=== PATIENT | male | born 1965 | race Caucasian/White ===

== ENCOUNTER 2016-06-07 11:02 | Emergency (ER) | payer BC ==
[~2016-06-07] VITALS: Ht 190.5 cm; Wt 126.0 kg
[~2016-06-07 11:02] MED LIST: DIPH25CA37 PO; FLUO0.0543 TOP; PRD10 PO
[2016-06-07 11:05] VITALS: BP 163/96; PULSE 73; TEMP 36.4; O2SAT 97; Ht 190.5 cm; Wt 126.0 kg
[2016-06-07 11:57] LABS: BASO % 0.7 %; BASO ABS # 0.05 K/uL (0-0.2); COMPLETE YES; EOS % 4.3 %; HEMATOCRIT 45.7 % (42-52); IG% 0.1 %; LYMPH % 22.9 %; LYMPH ABS # 1.53 K/uL (1.2-3.4); MEAN CELL VOLUME 89.3 fL (80-100); MEAN CORPUSCULAR HEMOGLOBIN 30.5 pg (25-34); MEAN CORPUSCULAR HGB CONC 34.1 g/dl (32-36); MEAN PLATELET VOLUME 10.7 fL (7.4-10.4); MONO % 9.7 %; NEUT % 62.3 %; PLATELET COUNT 198 K/uL (130-400); RED BLOOD COUNT 5.12 M/uL (4.7-6.1); WHITE BLOOD COUNT 6.67 K/uL (4.8-10.8)
[2016-06-07 12:16] LABS: CALCIUM 8.6 mg/dl (8.5-10.1); CREATININE 1.1 mg/dl (0.60-1.40); POTASSIUM 4.3 mmol/L (3.5-5.1)
[2016-06-07 12:19] LABS: C-REACTIVE PROTEIN 0.32 mg/dl (0-0.29)
[2016-06-07 12:23] LABS: INR 0.9 (0.9-1.1); PROTHROMBIN TIME (PATIENT) 10.1 SECONDS (9.0-12.0)
--- NOTE | 2016-06-07 12:53 | EMERGENCY ROOM VISIT NOTE ---
ED Visit Note First contact with patient: 11:10 This Patient was discussed with the physician Research Greenhouse Supervisor, Estrella Raya PA-C. The pertinent historical and physical exam findings were confirmed. I agree with the studies ordered and with the interpretations of these studies. I agree with the disposition and care plan.
[2016-06-07] MEDS ORDERED: DOXY100C PO (13:10)
[2016-06-07] MEDS ORDERED: PRED20TA PO (13:11)
--- NOTE | 2016-06-07 13:13 | EMERGENCY ROOM VISIT NOTE ---
History First contact with patient: 11:10 Chief Complaint: RASH Stated Complaint: RASH, BLISTERS, HIVES History of Present Illness The patient is a 51 year old male who presents to the Emergency Room for evaluation of a rash to his left lower leg and both hands. The patient states that he has had issues with rashes for the past 2 years. The patient was initially seen here in September 2014 and admitted for possible cellulitis. He has since been evaluated by a fire information officer and they determined that the rash was likely a hypersensitivity reaction. 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 He has been using a prescription steroid cream and Eucerin ointment without relief. The patient states that there is redness and mild pain in the left lower leg. He states this was the site of infection previously. He also reports a history of venous stasis in that leg. He reports that recently, he has been having redness , itchiness and swelling of both of his hands. He states that today, a few blisters appeared on the hands. He has not seen his primary care provider for any symptoms. The patient denies any fevers/chills, decreased range of motion, new foods, new medications or new environmental exposures. He reports he occasionally takes Benadryl for itching. Review of Systems A complete 10-point Review of Systems was discussed with the patient, with pertinent positives and negatives listed in the History of Present Illness. All remaining Review of Systems questions can be considered negative unless otherwise specified. Past Medical/Surgical History Medical Problems: (1) Cellulitis (2) No Known Active Medical Problems Family History Cancer Diabetes mellitus Heart disease Social History Smoking Status: Never Smoker Alcohol Use: occasionally Marital Status: Housing Status: lives with family Occupation Status: employed Current/Historical Medications Scheduled Doxycycline Hyclate (Vibramycin), 100 MG PO BID Prednisone (Prednisone), 0 PO DAILY Allergies Coded Allergies: No Known Allergies (Unverified , 06/07/16) Physical Exam Vital Signs Date Time Temp Pulse Resp B/P Pulse Ox O2 Delivery O2 Flow Rate FiO2 06/07/16 11:05 36.4 73 18 163/96 97 Room Air Physical Exam VITALS: Vitals are noted on the nurse's note and reviewed by myself. Vital signs stable. GENERAL: This is a 51-year-old male, in no acute distress, nondiaphoretic, well- developed well-nourished. SKIN: There are erythematous, scaly patches to the dorsal aspects of bilateral hands, fingers and the forearms. There is evidence of excoriation. There are no lacerations or areas of induration. HEART: Regular rate and rhythm without murmurs gallops or rubs. LUNGS: Clear to auscultation bilaterally without wheezes, rales or rhonchi. EXTREMITIES:There are chronic-appearing venous stasis changes over the left lower leg. There is mild erythema over the lower one third of the left lower leg consistent with cellulitis. No abscess or induration. Dorsalis pedis pulses are intact. NEURO: Patient was alert and oriented to person place and time. Medical Decision & Procedures Laboratory Results 06/07/16 11:40 Red Blood Count 5.12, Mean Corpuscular Volume 89.3, Mean Corpuscular Hemoglobin 30.5, Mean Corpuscular Hemoglobin Concent 34.1, Mean Platelet Volume 10.7, Neutrophils (%) (Auto) 62.3, Lymphocytes (%) (Auto) 22.9, Monocytes (%) (Auto) 9.7, Eosinophils (%) (Auto) 4.3, Basophils (%) (Auto) 0.7, Neutrophils # (Auto) 4.14, Lymphocytes # (Auto) 1.53, Monocytes # (Auto) 0.65, Eosinophils # (Auto) 0.29, Basophils # (Auto) 0.05 06/07/16 11:40 Test 06/07/16 11:40 White Blood Count 6.67 K/uL (4.8-10.8) Red Blood Count 5.12 M/uL (4.7-6.1) Hemoglobin 15.6 g/dL (14.0-18.0) Hematocrit 45.7 % (42-52) Mean Corpuscular Volume 89.3 fL (80-100) Mean Corpuscular Hemoglobin 30.5 pg (25-34) Mean Corpuscular Hemoglobin Concent 34.1 g/dl (32-36) Platelet Count 198 K/uL (130-400) Mean Platelet Volume 10.7 fL (7.4-10.4) Neutrophils (%) (Auto) 62.3 % Lymphocytes (%) (Auto) 22.9 % Monocytes (%) (Auto) 9.7 % Eosinophils (%) (Auto) 4.3 % Basophils (%) (Auto) 0.7 % Neutrophils # (Auto) 4.14 K/uL (1.4-6.5) Lymphocytes # (Auto) 1.53 K/uL (1.2-3.4) Monocytes # (Auto) 0.65 K/uL (0.11-0.59) Eosinophils # (Auto) 0.29 K/uL (0-0.5) Basophils # (Auto) 0.05 K/uL (0-0.2) RDW Standard Deviation 42.2 fL (36.4-46.3) RDW Coefficient of Variation 12.9 % (11.5-14.5) Immature Granulocyte % (Auto) 0.1 % Immature Granulocyte # (Auto) 0.01 K/uL (0.00-0.02) Erythrocyte Sedimentation Rate 15 mm/hr (0-14) Prothrombin Time 10.1 SECONDS (9.0-12.0) Prothromb Time International Ratio 0.9 (0.9-1.1) Activated Partial Thromboplast Time 25.9 SECONDS (21.0-31.0) Partial Thromboplastin Ratio 1.0 Anion Gap 4.0 mmol/L (3-11) Est Creatinine Clear Calc Drug Dose 114.9 ml/min Estimated GFR () 90.2 Estimated GFR (Non- 77.9 BUN/Creatinine Ratio 16.0 (10-20) Calcium Level 8.6 mg/dl (8.5-10.1) Total Bilirubin 0.5 mg/dl (0.2-1) Aspartate Amino Transf (AST/SGOT) 13 U/L (15-37) Alanine Aminotransferase (ALT/SGPT) 33 U/L (12-78) Alkaline Phosphatase 91 U/L (45-117) C-Reactive Protein 0.32 mg/dl (0-0.29) Total Protein 7.3 gm/dl (6.4-8.2) Albumin 3.7 gm/dl (3.4-5.0) Globulin 3.6 gm/dl (2.5-4.0) Albumin/Globulin Ratio 1.0 (0.9-2) Medications Administered Medications (Trade) Dose Ordered Sig/Janeth Route Start Time Stop Time Status Last Admin Dose Admin Dexamethasone Sodium Phosphate (Decadron Inj) 10 mg NOW STAT IV 06/07/16 13:29 06/07/16 13:30 DC 06/07/16 13:37 10 MG Medical Decision Differential diagnosis includes allergic reaction, eczema, cellulitis, among others. The patient was evaluated as above. Labs were drawn and IV access was obtained. The patient was medicated with 10 mg Decadron IV. The patient is a 51-year-old male who presents today complaining of a persistent rash. Labs were unremarkable. I did review records from the patient 's previous hospitalization. At that time, it was felt that the patient likely had a hypersensitivity reaction and secondary infection due to excoriation. If you feel that the patient's symptoms are still consistent with a hypersensitivity reaction/eczematous disorder. He has done well with steroids in the past. He will be placed on a prednisone taper and was given 10 mg Decadron IV in the emergency department. The patient will be placed on doxycycline for a possible left lower leg cellulitis. Case management will attempt to make the patient an appointment with a fire information officer for further evaluation. He was instructed to return for any new/concerning symptoms. Based on the patient's presentation, lab results, and imaging studies, I feel the patient is stable for outpatient treatment. The patient was independently evaluated by Dr. Dominguez, ED attending physician, who agreed with my assessment and treatment plan. Discharge instructions were reviewed with the patient. The patient verbalized understanding of my assessment and treatment plan and was discharged home in good condition. Impression Primary Impression: Rash and nonspecific skin eruption Additional Impression: Cellulitis of left leg Departure Information Dispostion Home / Self-Care Condition GOOD Prescriptions Prednisone (Prednisone) 20 Mg Tab 0 PO DAILY, #18 TAB 3 DAILY FOR 3 DAYS, THEN 2 DAILY FOR 3 DAYS, THEN 1 DAILY FOR 3 DAYS. Prov: Estrella Raya .MICHELE 06/07/16 Doxycycline Hyclate (VIBRAMYCIN) 100 Mg Cap 100 MG PO BID for 10 Days, #20 CAP Prov: Estrella Raya PA-C 06/07/16 Referrals No Doctor, Assigned (PCP) Patient Instructions My [facility] Additional Instructions You have been prescribed Prednisone. This is a steroid which will help decrease your inflammation, redness, and itch. Take this medicine as prescribed. Take the ENTIRE 4 day course. It is best to take steroids early in the morning as PM dosing can affect your sleeping patterns. You were prescribed doxycycline to be taken twice daily as prescribed. This is an antibiotic. All antibiotics have the potential to cause diarrhea. Stop this medication and contact a medical provider if you were to develop any significant adverse side effects including: wheezing, shortness of breath, passing out, vomiting, or a diffuse rash. Always take antibiotics as directed and COMPLETE the ENTIRE course regardless of the improvement of your symptoms. For pain control, you can use the following [id number] medicines (if >12 yo): - Regular strength (325mg/tab) Tylenol (acetaminophen) 2 tabs every 4-6 hours as needed. Do not exceed 12 tablets in a 24 hour period. Avoid taking more than 4 grams (4000 mg) of Tylenol per day. This includes any other sources of acetaminophen you may take on a regular basis. - Regular strength (200 mg/tab) Advil (ibuprofen) 1-2 tabs every 4-6 hours as needed. Do not exceed a dose of 3200 mg per day. Case management is going to contact dermatology to make you follow-up appointment. They will contact you on Thursday. Return for any new/concerning symptoms. Problem Qualifiers
[2016-06-07] MEDS ORDERED: DEXAMETHASONE SOD INJ 4 MG/ML VIAL IV STA (13:29)
== END 2016-06-07 13:56 | disposition home or self-care (01) ==
LOC: C.EDB 11:04
DX: R21 Rash and other nonspecific skin eruption (principal); L03.116 Cellulitis of left lower limb